=== PATIENT | male | born 1980 | race Caucasian/White ===

== ENCOUNTER 2018-03-24 05:14 | Emergency (ER) | payer SELFPAY ==
[~2018-03-24] VITALS: Ht 175.3 cm; Wt 81.6 kg
[~2018-03-24 05:14] MED LIST: ACHD5005 PO; HYDR-3812 PO; HYDR1TAB66 PO; IBP800T PO; ONDA4TAB8 SL; SULF1TAB38 PO
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
[2018-03-24] MEDS ORDERED: KETOROLAC 30 MG/ML VIAL IVP STA (05:26)
[2018-03-24] MEDS ORDERED: LACTATED RINGERS 1,000 ML IV ONE ×2 (05:26→06:18)
[2018-03-24] MEDS ORDERED: ONDANSETRON 4 MG/2 ML (SDV) Z0FRAN IVP ONE ×2 (05:30→05:45)
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
[2018-03-24 05:42] LABS: BASOPHILS # (AUTO) 0.1 10^3/uL (0.0-0.1); BASOPHILS % (AUTO) 1 % (0-10); EOSINOPHILS # (AUTO) 1.1 10^3/uL (0.0-0.3); EOSINOPHILS % (AUTO) 11 % (0-10); HEMATOCRIT 45 % (40-54); HEMOGLOBIN 16.8 G/DL (13.3-17.7); LYMPHOCYTES # (AUTO) 4.5 X 10^3 (1.0-4.0); LYMPHOCYTES % (AUTO) 45 % (12-44); MEAN CORPUSCULAR HEMOGLOBIN 31 PG (25-34); MEAN CORPUSCULAR HGB CONC 38 G/DL (32-36); MEAN CORPUSCULAR VOLUME 84 FL (80-99); MEAN PLATELET VOLUME 9.6 FL (7.4-10.4); MONOCYTES # (AUTO) 1.2 X 10^3 (0.0-1.0); MONOCYTES % (AUTO) 12 % (0-12); NEUTROPHILS # (AUTO) 3.1 X 10^3 (1.8-7.8); NEUTROPHILS % (AUTO) 32 % (42-75); PLATELET COUNT 361 10^3/uL (130-400); RED BLOOD COUNT 5.35 10^6/uL (4.35-5.85); RED CELL DISTRIBUTION WIDTH 12.6 % (10.0-14.5); WHITE BLOOD COUNT 9.9 10^3/uL (4.3-11.0)
[2018-03-24] MEDS ORDERED: diphenhydrAMINE 50 MG/ML INJ (BENADRYL) IVP ONE (05:45)
[2018-03-24] MEDS ORDERED: ALFUZOSIN HCL 10 MG TAB (UROXATRAL) PO SCH (05:45)
[2018-03-24] MEDS ORDERED: ORPHENADRINE 60 MG/2 ML (NORFLEX) AMP IV ONE (05:45)
[2018-03-24] MEDS ORDERED: PANTOPRAZOLE 40 MG (PROTONIX) VIAL IV ONE (05:45)
[2018-03-24 06:09] LABS: ALANINE AMINOTRANSFERASE 55 U/L (0-55); ALBUMIN 4.7 GM/DL (3.2-4.5); ALKALINE PHOSPHATASE 94 U/L (40-136); AMYLASE 44 U/L (25-125); BILIRUBIN,TOTAL 0.9 MG/DL (0.1-1.0); BUN/CREATININE RATIO 12; CALCIUM 10.3 MG/DL (8.5-10.1); CARBON DIOXIDE 22 MMOL/L (21-32); CHLORIDE 104 MMOL/L (98-107); CREATININE SERUM 1.34 MG/DL (0.60-1.30); GFR ESTIMATED 60; GLUCOSE 104 MG/DL (70-105); LIPASE 23 U/L (8-78); POTASSIUM 3.8 MMOL/L (3.6-5.0); SODIUM 141 MMOL/L (135-145); TOTAL PROTEIN 7.3 GM/DL (6.4-8.2)
[2018-03-24 06:58] LABS: BILIRUBIN,URINE NEGATIVE (NEGATIVE); CLARITY,URINE CLEAR; COLOR,URINE AMBER; GLUCOSE, URINE (UA) NEGATIVE (NEGATIVE); KETONES,URINE 1+ (NEGATIVE); LEUKOCYTE ESTERASE ,URINE 1+ (NEGATIVE); NITRITE,URINE NEGATIVE (NEGATIVE); PH,URINE 6 (5-9); PROTEIN,URINE 1+ (NEGATIVE); UROBILINOGEN,URINE NORMAL (NORMAL)
[2018-03-24] MEDS ORDERED: CIPR-225 PO (07:07)
[2018-03-24] MEDS ORDERED: ONDA4TAB8 PO (07:07)
[2018-03-24] MEDS ORDERED: KETO10TA PO (07:07)
[2018-03-24] MEDS ORDERED: ACHD5005 PO (07:07)
[2018-03-24] MEDS ORDERED: TAMS0.4C98 PO (07:07)
[2018-03-24 07:13] LABS: AMPHETAMINE SCREEN, URINE POSITIVE (NEGATIVE); BACTERIA,URINE NEGATIVE /HPF; BARBITURATE SCREEN URINE NEGATIVE (NEGATIVE); BENZODIAZEPINES SCREEN URINE NEGATIVE (NEGATIVE); CANNABINOID SCREEN, URINE POSITIVE (NEGATIVE); COCAINE SCREEN URINE NEGATIVE (NEGATIVE); METHADONE STAT NEGATIVE (NEGATIVE); METHAMPHETAMINE SCREEN URINE S POSITIVE (NEGATIVE); OPIATE SCREEN URINE NEGATIVE (NEGATIVE); OXYCODONE STAT NEGATIVE (NEGATIVE); PROPOXYPHENE STAT NEGATIVE (NEGATIVE); RBC,URINE 25-50 /HPF; SQUAMOUS EPITHELIAL CELL,UR RARE /HPF; TRICYCLIC ANTIDEPRESSANTS SCRE NEGATIVE (NEGATIVE); WBC,URINE RARE /HPF
[2018-03-24 07:15] VITALS: BP 110/78
--- NOTE | 2018-03-24 07:52 | Diagnostic Imaging Report ---
PROCEDURE: CT urinary tract, rule out kidney stone. TECHNIQUE: Multiple contiguous axial images were obtained through the abdomen and pelvis without the use of intravenous contrast. INDICATION: Right flank pain Comparison is made to the study of 03/02/2018. Note is made of nonacute fracture involving the lateral aspect of right rib in the midthorax. Unenhanced images of the liver and spleen reveal no focal abnormality. There is no evidence of pancreatic, gallbladder or adrenal gland abnormality. Multiple bilateral renal calculi are again identified. There has been migration of a stone into the right mid ureter which measures 0.3 cm in diameter. No free fluid is seen within the abdomen or pelvis. There is no evidence of localized inflammation or focal fluid collection. Appendix has a normal appearance. There is no evidence of abnormality in the non-opacified urinary bladder. IMPRESSION: Bilateral nephrolithiasis with probable at least partially obstructing 0.3 cm calculus in the midportion of the right ureter. Dictated by: Dictated on workstation # [id number]
--- NOTE | 2018-03-24 08:06 | Diagnostic Imaging Report ---
Indication: Right flank pain Supine and upright views of the abdomen are obtained with single view of the chest. Lungs appear clear, bilaterally. Overall bowel gas pattern is within normal limits. Stool overlying the urinary tract does limit evaluation. There appears to be faint calcification projecting over the kidneys bilaterally likely due to nephrolithiasis. No other pathologic calcification is seen within the abdomen or pelvis. Impression: Small bilateral renal calculi without other evidence of acute abnormality seen in the abdomen. Dictated by: Dictated on workstation # [id number]
== END 2018-03-24 07:15 | disposition home or self-care (01) ==
LOC: EDUNIT# 05:14 → ER 05:16
DX: N20.2 Calculus of kidney with calculus of ureter (principal); I10 Essential (primary) hypertension; F15.10 Other stimulant abuse, uncomplicated; F12.10 Cannabis abuse, uncomplicated; Z87.19 Personal history of other diseases of the digestive system; Z86.14 Personal history of Methicillin resistant Staphylococcus aureus infection; Z91.14 Patient's other noncompliance with medication regimen; Z87.891 Personal history of nicotine dependence; Z87.442 Personal history of urinary calculi; Z90.89 Acquired absence of other organs
CPT/HCPCS: 36415; 74022; 74176; 80053; 80306; 80320; 81000; 82150; 83690; 85025; 96361; 96374; 96375

== ENCOUNTER 2019-08-11 06:38 | Emergency (ER) | payer SELFPAY ==
[~2019-08-11] VITALS: Ht 180 cm; Wt 84.0 kg
[~2019-08-11 06:38] MED LIST changes: +CIPR-225 PO; +KETO10TA PO; +ONDA4TAB8 PO; +TMSL.4C PO
[2019-08-11] MEDS ORDERED: KETOROLAC 30 MG/ML VIAL ONE (06:43)
[2019-08-11] MEDS ORDERED: KETOROLAC 30 MG/ML VIAL IVP STA (06:53)
[2019-08-11] MEDS ORDERED: fentaNYL INJECTION 100 MCG/2 ML AMP IVP STA (06:53)
[2019-08-11] MEDS ORDERED: LACTATED RINGERS 1,000 ML IV STA (06:53)
--- NOTE | 2019-08-11 06:55 | NUR ---
IN ROOM AT THIS TIME.
[2019-08-11] MEDS ORDERED: fentaNYL INJECTION 100 MCG/2 ML AMP IVP PRN (07:45)
[2019-08-11 08:02] LABS: BASOPHILS % (AUTO) 0 % (0-10); EOSINOPHILS # (AUTO) 0.5 10^3/uL (0.0-0.3); EOSINOPHILS % (AUTO) 7 % (0-10); HEMATOCRIT 41 % (40-54); LYMPHOCYTES # (AUTO) 2.2 X 10^3 (1.0-4.0); LYMPHOCYTES % (AUTO) 32 % (12-44); MEAN CORPUSCULAR HEMOGLOBIN 31 PG (25-34); MEAN CORPUSCULAR HGB CONC 36 G/DL (32-36); MEAN CORPUSCULAR VOLUME 85 FL (80-99); MEAN PLATELET VOLUME 9.3 FL (7.4-10.4); MONOCYTES # (AUTO) 0.4 X 10^3 (0.0-1.0); MONOCYTES % (AUTO) 6 % (0-12); NEUTROPHILS # (AUTO) 3.9 X 10^3 (1.8-7.8); NEUTROPHILS % (AUTO) 55 % (42-75); PLATELET COUNT 284 10^3/uL (130-400); WHITE BLOOD COUNT 7.1 10^3/uL (4.3-11.0)
[2019-08-11 08:22] LABS: ALANINE AMINOTRANSFERASE 41 U/L (0-55); ALBUMIN 3.8 GM/DL (3.2-4.5); ALKALINE PHOSPHATASE 90 U/L (40-136); BILIRUBIN,TOTAL 0.5 MG/DL (0.1-1.0); BUN/CREATININE RATIO 13; CALCIUM 9.1 MG/DL (8.5-10.1); CARBON DIOXIDE 27 MMOL/L (21-32); CHLORIDE 105 MMOL/L (98-107); CREATININE SERUM 1.23 MG/DL (0.60-1.30); GFR ESTIMATED > 60; GLUCOSE 113 MG/DL (70-105); POTASSIUM 3.7 MMOL/L (3.6-5.0); SODIUM 138 MMOL/L (135-145); TOTAL PROTEIN 6.4 GM/DL (6.4-8.2)
--- NOTE | 2019-08-11 08:44 | Diagnostic Imaging Report ---
EXAMINATION: CT Abdomen Pelvis without contrast. TECHNIQUE: Multiple contiguous axial images were obtained through the abdomen and pelvis without the use of intravenous contrast. All CT scans use one or more of the following dose optimizing techniques: automated exposure control, MA and/or KvP adjustment based on a patient size and exam type, or iterative reconstruction. HISTORY: Flank pain COMPARISON: 03/24/2018 FINDINGS: Limited views of the lower thorax are unremarkable. The liver is normal without focal lesion. There is no biliary ductal dilation. Gallbladder is normal. Pancreas is normal. Spleen is normal. Adrenal glands are normal. There are approximately eight right and six left renal stones. The largest on the right measures 7 mm and the largest on the left measures 5 mm. There is mild left hydroureteronephrosis with a 2 mm stone in the distal left ureter approximately 1 cm proximal to the left ureterovesical junction. There is mild left perinephric fat stranding. No right-sided ureteral stones are seen. Urinary bladder is normal. There are no dilated loops of large or small bowel. No obstruction or inflammation. No free fluid or air. No abdominal or pelvic lymphadenopathy. Aorta is normal in caliber without aneurysm. There are no suspicious osseus lesions. Old right-sided rib fractures are seen. IMPRESSION: 1. Obstructing 2 mm stone in the distal left ureter with mild left hydroureteronephrosis. Dictated by: Dictated on workstation # [id number]
[2019-08-11] MEDS ORDERED: HYDROmorphone 2 MG/ML VIAL (DILAUDID) IV ONE (08:45)
[2019-08-11 09:29] LABS: BILIRUBIN,URINE NEGATIVE (NEGATIVE); CLARITY,URINE CLEAR; COLOR,URINE YELLOW; GLUCOSE, URINE (UA) NEGATIVE (NEGATIVE); KETONES,URINE NEGATIVE (NEGATIVE); LEUKOCYTE ESTERASE ,URINE NEGATIVE (NEGATIVE); NITRITE,URINE NEGATIVE (NEGATIVE); PH,URINE 7.5 (5-9); PROTEIN,URINE NEGATIVE (NEGATIVE)
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
[2019-08-11 09:42] LABS: BACTERIA,URINE TRACE /HPF; RBC,URINE 50-100 /HPF
[2019-08-11 09:48] LABS: AMPHETAMINE SCREEN, URINE POSITIVE (NEGATIVE); BARBITURATE SCREEN URINE NEGATIVE (NEGATIVE); BENZODIAZEPINES SCREEN URINE NEGATIVE (NEGATIVE); CANNABINOID SCREEN, URINE POSITIVE (NEGATIVE); COCAINE SCREEN URINE NEGATIVE (NEGATIVE); METHADONE STAT NEGATIVE (NEGATIVE); METHAMPHETAMINE SCREEN URINE S POSITIVE (NEGATIVE); OPIATE SCREEN URINE NEGATIVE (NEGATIVE); OXYCODONE STAT NEGATIVE (NEGATIVE); PROPOXYPHENE STAT NEGATIVE (NEGATIVE); TRICYCLIC ANTIDEPRESSANTS SCRE NEGATIVE (NEGATIVE)
[2019-08-11] MEDS ORDERED: ACHD5005 PO (09:49)
[2019-08-11] MEDS ORDERED: CEPH500T PO (09:49)
[2019-08-11] MEDS ORDERED: HYDROcodone/APAP 5 MG/325 MG (LORTAB) TAB PO ONE (10:00)
--- NOTE | 2019-08-11 10:01 | Diagnostic Imaging Report ---
EXAMINATION: Supine abdomen at 938h. INDICATION: Right-sided pain The CT abdomen/pelvis exam performed earlier today at 7:00 AM noted a 2 mm obstructive calculus within the distal LEFT ureter. There may be a small calcific density in this region on this exam. The nonobstructive calculi within both kidneys seen previously are again evident. No other pathological calcification is seen. IMPRESSION: The obstructive calculus involving the distal left ureter seen previously does appear to be evident on this exam. The nonobstructive calculi within the kidneys are also again seen. Dictated by: Dictated on workstation # [id number]
[2019-08-11 10:14] VITALS: BP 128/96
== END 2019-08-11 10:14 | disposition home or self-care (01) ==
LOC: EDUNIT# 06:38 → ER 06:40
DX: N13.2 Hydronephrosis with renal and ureteral calculous obstruction (principal); I10 Essential (primary) hypertension; F17.210 Nicotine dependence, cigarettes, uncomplicated
CPT/HCPCS: 36415; 74018; 74176; 80053; 80306; 81000; 85025; 96374; 96375; 96376

== ENCOUNTER 2020-08-28 09:54 | Emergency (ER) | payer SELFPAY ==
[~2020-08-28] VITALS: Ht 175.2 cm; Wt 86.2 kg
[~2020-08-28 09:54] MED LIST changes: +CEPH500T PO; -HYDR-3812 PO
[2020-08-28] MEDS ORDERED: morphine INJ 10 MG/ML 1ML (SYR OR VIAL) IVP STA ×2 (10:00→10:45)
--- NOTE | 2020-08-28 10:31 | Diagnostic Imaging Report ---
EXAMINATION: Left hand at 10:16 AM. INDICATION: Left 2nd digit saw injury. TECHNIQUE/COMPARISON: Three views were obtained. There are no prior studies available for comparison. FINDINGS: There is evidence of a considerable soft tissue injury along the lateral and volar aspect of the 2nd metacarpophalangeal joint. There is no evidence for a fracture in this region. There is no clear sign of a radiopaque foreign body although this area is partially obscured by overlying gauze. No other fracture or acute bony abnormality is noted. There are post surgical changes involving the middle phalanx of the 3rd digit. Specifically, there is an orthopedic plate and screw fixation device along the dorsal aspect of the middle phalanx. IMPRESSION: 1. There is a soft tissue injury along the lateral volar aspect of the 2nd metacarpophalangeal region. There is no fracture identified nor is there any clear evidence for a radiopaque foreign body. 2. There is no acute bony abnormality noted otherwise. 3. There are post surgical changes involving the middle phalanx of the 3rd digit. Dictated by: Dictated on workstation # [id number]
[2020-08-28] MEDS ORDERED: LIDOCAINE 1% INJ 20 ML 20 ML VIAL ONE (10:32)
[2020-08-28 10:33] LABS: HEMOGLOBIN 15.7 g/dL (13.3-17.7); WHITE BLOOD COUNT 8.3 10^3/uL (4.3-11.0)
[2020-08-28] MEDS ORDERED: TETANUS,DIPTH,PERTUSS P/F (BOOSTRIX) 0.5 ML VIAL IM ONE ×2 (10:43→11:00)
[2020-08-28] MEDS ORDERED: LIDOCAINE 1% INJ 20 ML 20 ML VIAL INJ ONE ×2 (10:45)
[2020-08-28] MEDS ORDERED: LORazepam INJ 2 MG/ML (ATIVAN) VIAL IVP ONE (10:45)
[2020-08-28 10:47] LABS: CHLORIDE 105 MMOL/L (98-107); POTASSIUM 4.1 MMOL/L (3.6-5.0); SODIUM 139 MMOL/L (135-145)
[2020-08-28 10:49] LABS: CALCIUM 9.1 MG/DL (8.5-10.1); GLUCOSE 76 MG/DL (70-105)
[2020-08-28 10:51] LABS: CARBON DIOXIDE 25 MMOL/L (21-32)
[2020-08-28 10:53] LABS: CREATININE SERUM 1.22 MG/DL (0.60-1.30); GFR ESTIMATED > 60
[2020-08-28 10:54] LABS: BUN/CREATININE RATIO 14
[2020-08-28] MEDS ORDERED: TRANEXAMIC ACID 100 MG/ML 10 ML INJECTION ONE (11:15)
[2020-08-28] MEDS ORDERED: NS (IVPB) 50 ML ONE (11:18)
[2020-08-28] MEDS ORDERED: TRANEXAMIC ACID INJECTION 1,000 MG in NS (IVPB) 250 ML IV SCH (12:00)
[2020-08-28] MEDS ORDERED: TRANEXAMIC ACID INJECTION 1,000 MG in NS (IVPB) 100 ML IV ONE (12:15)
[2020-08-28] MEDS ORDERED: ceFAZolin 2 GM IV Premixed 50 ML IV ONE (12:45)
[2020-08-28] MEDS ORDERED: TRIM/SULFAMETH 160/800 (SEPTRA DS) TAB PO ONE (12:45)
--- NOTE | 2020-08-28 13:43 | CONSULTATION REPORT ---
DATE OF SERVICE: 08/28/2020 HISTORY OF PRESENT ILLNESS: The patient is a 40-year-old male who was brought into the Emergency Department after sustaining a laceration to the left second digit while using a circular saw. He reports that he was working with wood and his hand slipped and sustained a laceration encompassing around the area of the second metacarpophalangeal joint extending superiorly over the proximal portion of the digit and then returning back medially causing a flap. The ED physician was able to suture the vast majority of the wound; however, there was continued hemorrhagic oozing. Few full thickness sutures were placed to tamponade at the bleeders with visualization of good hemostasis. He does have full extension and flexion capabilities of the digit and does not appear to have any paresthesias. PAST MEDICAL HISTORY: Polysubstance abuse, nephrolithiasis, hypertension. PAST SURGICAL HISTORY: Tonsillectomy, adenoidectomy. SOCIAL HISTORY: Positive smoke 30 pack years. Positive alcohol. Positive for polysubstance illicit drug use. FAMILY HISTORY: Noncontributory. VITAL SIGNS: Temperature 36.4, blood pressure 140/86, pulse 118, respirations 20, pulse ox 100% on room air. REVIEW OF SYSTEMS: A well-nourished male currently in no acute distress. He is not experiencing any shortness of breath or difficulty breathing. No chest pain, palpitations, diaphoresis. No nausea, vomiting. No diarrhea or constipation. No fever, chills, no recent inadvertent weight loss. All other review of systems negative. PHYSICAL EXAMINATION: CHEST: Clear. Good breath sounds bilaterally. HEART: Regular, no murmurs. EXTREMITIES: No lower extremity edema, negative Homans sign. HEENT: No scleral icterus. NECK: No cervical lymphadenopathy. ABDOMEN: Soft, nontender, nondistended. SKIN: There is a full thickness skin laceration of the left second metacarpophalangeal region. However, there does not appear to be any physical dysfunction or focal neurologic deficit. This has been sutured. However, there continues to be some oozing in some regions. EXTREMITIES: He moves all digits purposefully upon command. LABORATORY DATA: WBC 8.3, hemoglobin 15.7, hematocrit 45, platelets 293. BUN 17, creatinine 1.22. ASSESSMENT AND PLAN: A 40-year-old male with trauma to the right first digit and metacarpophalangeal joint with a full thickness skin tear; however, he does not appear to have any motor or sensory deficit and this has been repaired by Emergency Department physician. However, there appears to be some residual oozing, which were tamponaded with interrupted 4-0 Prolene sutures. This was observed for several minutes with good hemostasis. The wound was then cleaned and covered with 4 x 4 gauze followed by Lexi wrap and then 2-inch Hakeem wrap followed by a removable splint. Staff is working on a followup appointment with orthopedic hand surgery for followup as well. Job ID: [id number] DocumentID: [id number] Dictated Date: 08/28/2020 13:18:35 [employer] Date: 08/28/2020 13:41:56 Dictated By: SONDRA CASTANO MD
[2020-08-28] MEDS ORDERED: SULF1TAB35 PO (14:28)
[2020-08-28] MEDS ORDERED: ACHD5005 PO (14:28)
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
[2020-08-28 14:39] VITALS: BP 106/69
== END 2020-08-28 14:39 | disposition home or self-care (01) ==
LOC: EDUNIT# 09:54 → ER 09:56
DX: S61.211A Laceration without foreign body of left index finger without damage to nail, initial encounter (principal); S66.321A Laceration of extensor muscle, fascia and tendon of left index finger at wrist and hand level, initial encounter; R58 Hemorrhage, not elsewhere classified; Z87.820 Personal history of traumatic brain injury; Z23 Encounter for immunization; Z77.22 Contact with and (suspected) exposure to environmental tobacco smoke (acute) (chronic); W31.2XXA Contact with powered woodworking and forming machines, initial encounter
CPT/HCPCS: 12034; 29125; 73130; 80048; 85027; 99284; G0480; 36415; 80320; 90715

== ENCOUNTER 2020-08-30 10:06 | Emergency (ER) | payer SELFPAY ==
[~2020-08-30] VITALS: Ht 175.2 cm; Wt 86.2 kg
[~2020-08-30 10:06] MED LIST changes: +SULF1TAB35 PO
[2020-08-30 10:13] VITALS: BP 137/95
[2020-08-30] MEDS ORDERED: TRM50T PO (11:22)
--- NOTE | 2020-08-30 11:24 | ED Suture Removal/Wound Check ---
Suture/Wound Re-check Suture Removal/Wound Recheck : Suture Removal/Wound Recheck: Dry/sterile dressing-appl General Appearance: WD/WN, no apparent distress Neuro/Tendon: normal sensation, motor deficit Skin Exam: normal color (Decreased range of motion secondary to pain), warm/dry Comments Patient presents to the emergency department for reevaluation of left index finger laceration by a saw 2 days ago. Patient has intact suture line from 2 days ago over the dorsum of the index finger of the left hand. He has dried crusted scabs over the entirety of the suture line. Patient states he has not washed his hands since he was seen and had the laceration repaired. Patient has hematoma that is soft underneath the flap. No surrounding erythema, no proximal lymphangitic streaking sensation is intact to the tip of the left index finger. He has some flexion at the proximal interphalangeal joint and at the MCP joint. Patient is given a phone number for follow-up with [facility]. He is strongly encouraged to call them for a follow-up appointment as he cannot afford to go to [facility] in [facility]. Physical Exam Vital Signs Vital Signs - First Documented 08/30/20 10:13 Temp 35.5 Pulse 93 Resp 18 B/P (MAP) 137/95 Pulse Ox 100 O2 Delivery Room Air Capillary Refill : General Appearance: WD/WN, mild distress Cardiovascular: regular rate, rhythm Respiratory: no respiratory distress Skin: normal color, warm/dry, other (See HPI) Departure Impression Primary Impression: Wound hematoma Additional Impression: Wound healing well Disposition: 01 HOME, SELF-CARE Condition: Stable Departure-Patient Inst. Decision time for Depature: 11:21 Referrals: NO,LOCAL PHYSICIAN (PCP) Primary Care Physician [facility] [place] Patient Instructions: Wound Care (DC) Add. Discharge Instructions: All discharge instructions reviewed with patient and/or family. Voiced understanding. Scripts Tramadol HCl (Tramadol HCl) 50 Mg Tablet 50 MG PO Q6H PRN for PAIN for 3 Days, #12 TAB 0 Refills Prov: WILFRED TOPETE MD 08/30/20 WILFRED TOPETE MD Aug 30, 2020 11:24
== END 2020-08-30 11:26 | disposition home or self-care (01) ==
LOC: EDUNIT# 10:06 → ER 10:09
DX: S61.211D Laceration without foreign body of left index finger without damage to nail, subsequent encounter (principal); X58.XXXD Exposure to other specified factors, subsequent encounter

== ENCOUNTER 2020-10-22 11:55 | Emergency (ER) | payer SELFPAY ==
[~2020-10-22] VITALS: Ht 175 cm; Wt 84.0 kg
[~2020-10-22 11:55] MED LIST changes: +TRM50T PO
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
[2020-10-22] MEDS ORDERED: KETOROLAC 30 MG/ML VIAL IVP ONE (12:15)
[2020-10-22] MEDS ORDERED: NS IV 1000 ML 1,000 ML IV SCH (12:15)
[2020-10-22] MEDS ORDERED: fentaNYL INJ 100 MCG/2 ML AMP IVP ONE ×2 (12:15→13:30)
[2020-10-22 12:29] LABS: BASOPHILS % (AUTO) 0 % (0-10); EOSINOPHILS # (AUTO) 0.3 10^3/uL (0.0-0.3); EOSINOPHILS % (AUTO) 3 % (0-10); HEMATOCRIT 43 % (40-54); HEMOGLOBIN 15.3 g/dL (13.3-17.7); LYMPHOCYTES # (AUTO) 2.7 10^3/uL (1.0-4.0); LYMPHOCYTES % (AUTO) 29 % (12-44); MEAN CORPUSCULAR HEMOGLOBIN 31 pg (25-34); MEAN CORPUSCULAR HGB CONC 36 g/dL (32-36); MEAN CORPUSCULAR VOLUME 86 fL (80-99); MEAN PLATELET VOLUME 9.3 fL (9.0-12.2); MONOCYTES # (AUTO) 0.7 10^3/uL (0.0-1.0); MONOCYTES % (AUTO) 8 % (0-12); NEUTROPHILS # (AUTO) 5.4 10^3/uL (1.8-7.8); NEUTROPHILS % (AUTO) 59 % (42-75); PLATELET COUNT 288 10^3/uL (130-400); WHITE BLOOD COUNT 9.2 10^3/uL (4.3-11.0)
[2020-10-22 12:29] LABS: BILIRUBIN,URINE NEGATIVE (NEGATIVE); CLARITY,URINE CLEAR; COLOR,URINE YELLOW; GLUCOSE, URINE (UA) NEGATIVE (NEGATIVE); KETONES,URINE NEGATIVE (NEGATIVE); LEUKOCYTE ESTERASE ,URINE NEGATIVE (NEGATIVE); NITRITE,URINE NEGATIVE (NEGATIVE); PROTEIN,URINE NEGATIVE (NEGATIVE)
[2020-10-22 12:43] LABS: AMPHETAMINE SCREEN, URINE POSITIVE (NEGATIVE); BARBITURATE SCREEN URINE NEGATIVE (NEGATIVE); BENZODIAZEPINES SCREEN URINE NEGATIVE (NEGATIVE); CANNABINOID SCREEN, URINE POSITIVE (NEGATIVE); COCAINE SCREEN URINE NEGATIVE (NEGATIVE); METHADONE STAT NEGATIVE (NEGATIVE); METHAMPHETAMINE SCREEN URINE S POSITIVE (NEGATIVE); OPIATE SCREEN URINE NEGATIVE (NEGATIVE); OXYCODONE STAT NEGATIVE (NEGATIVE); PROPOXYPHENE STAT NEGATIVE (NEGATIVE); TRICYCLIC ANTIDEPRESSANTS SCRE NEGATIVE (NEGATIVE)
[2020-10-22 12:44] LABS: ALBUMIN 4.1 GM/DL (3.2-4.5); POTASSIUM 3.9 MMOL/L (3.6-5.0)
[2020-10-22 12:45] LABS: CALCIUM 9.4 MG/DL (8.5-10.1)
[2020-10-22 12:47] LABS: TOTAL PROTEIN 6.9 GM/DL (6.4-8.2)
[2020-10-22 12:48] LABS: BILIRUBIN,TOTAL 0.7 MG/DL (0.1-1.0)
[2020-10-22 12:50] LABS: CREATININE SERUM 1.35 MG/DL (0.60-1.30)
[2020-10-22 12:57] LABS: BACTERIA,URINE NEGATIVE /HPF; RBC,URINE 25-50 /HPF; WBC,URINE 0-2 /HPF
[2020-10-22] MEDS ORDERED: NS 100 ML (IVPB) BAG IV ONE (13:15)
[2020-10-22] MEDS ORDERED: HOLD METFORMIN - RECEIVED CONTRAST 20 ML VIAL IV SCH (13:15)
[2020-10-22] MEDS ORDERED: IOHEXOL 350 MG/ML 100 ML (OMNIPAQUE 350) VIAL IV ONE (13:15)
[2020-10-22] MEDS ORDERED: CATHETER FLUSH 10 ML SYR IV PRN (13:15)
[2020-10-22] MEDS ORDERED: TMSL.4C PO (13:24)
[2020-10-22] MEDS ORDERED: OXYC1TAB16 PO (13:24)
[2020-10-22] MEDS ORDERED: CEFU500T63 PO (13:24)
[2020-10-22] MEDS ORDERED: IBUP-1780 PO (13:24)
[2020-10-22] MEDS ORDERED: HYDROcodone/APAP 5 MG/325 MG (LORTAB) TAB PO ONE (13:30)
--- NOTE | 2020-10-22 13:38 | Diagnostic Imaging Report ---
EXAMINATION: CT Abdomen/Pelvis without contrast. TECHNIQUE: Multiple contiguous axial images were obtained through the abdomen and pelvis without the use of intravenous contrast. All CT scans use one or more of the following dose optimizing techniques: automated exposure control, MA and/or KvP adjustment based on a patient size and exam type, or iterative reconstruction. HISTORY: Left flank pain. COMPARISON: CT abdomen/pelvis 08/11/2019. FINDINGS: Lung bases: Bibasilar dependent atelectasis. Solid organs: The liver is normal. The gallbladder is normal. There is no biliary ductal dilation. Pancreas is normal. Spleen is normal. Adrenal glands are normal. There is a 0.6 cm calculus within the mid left ureter resulting in mild left hydronephrosis and hydroureter. There are additional bilateral nonobstructing renal calculi measuring up to 0.4 cm. Bowel: The stomach and small bowel are normal without obstruction. The colon and appendix are normal. Peritoneum: There is no intraperitoneal free fluid or free air. No suspicious lymphadenopathy. Vasculature: Normal without aneurysm. Musculoskeletal: There is a left-sided L5 pars defect. No suspicious osseous lesion or compression fracture. There is mild bilateral gynecomastia. Pelvis: The prostate gland is normal. The urinary bladder is normal. IMPRESSION: 1. There is a 0.6 cm mid left ureteral calculus causing mild left hydronephrosis and hydroureter. 2. Additional bilateral nonobstructing renal calculi measuring up to 0.4 cm. Dictated by: Dictated on workstation # [id number]
[2020-10-22 14:02] VITALS: BP 133/88
--- NOTE | 2020-10-22 14:27 | Diagnostic Imaging Report ---
EXAMINATION: Abdomen 1 view HISTORY: left flank pain COMPARISON: CT abdomen and pelvis from 10/22/2020. FINDINGS: There is moderate amount of gas and stool throughout the colon. Nonobstructive bowel gas pattern. There is a 0.6 cm radiopaque structure at the level of the superior endplate of L3 which may correspond to the ureteral calculus seen on same-day CT. The osseous structures are intact. IMPRESSION: A 0.6 cm radiopaque structure in the left abdomen likely corresponds to the mid left ureteral calculus seen on same-day CT of the abdomen and pelvis. Dictated by: Dictated on workstation # [id number]
== END 2020-10-22 14:02 | disposition home or self-care (01) ==
LOC: EDUNIT# 11:55 → ER 11:56
DX: N13.2 Hydronephrosis with renal and ureteral calculous obstruction (principal); I10 Essential (primary) hypertension; Z77.22 Contact with and (suspected) exposure to environmental tobacco smoke (acute) (chronic)
CPT/HCPCS: 36415; 74018; 74176; 80053; 80306; 81000; 85025; 96374; 96375; 96376

== ENCOUNTER 2020-10-24 19:53 | Emergency (ER) | payer SELFPAY ==
[~2020-10-24] VITALS: Ht 175 cm; Wt 82.0 kg
[~2020-10-24 19:53] MED LIST changes: +CEFU500T63 PO; +IBUP-1780 PO; +OXYC1TAB16 PO
[2020-10-24] MEDS ORDERED: NS IV 1000 ML 1,000 ML ONE (19:55)
[2020-10-24] MEDS ORDERED: NS IV 1000 ML 1,000 ML IV STA (19:59)
[2020-10-24] MEDS ORDERED: fentaNYL INJ 100 MCG/2 ML AMP IVP ONE ×3 (20:00→21:15)
[2020-10-24] MEDS ORDERED: KETOROLAC 30 MG/ML VIAL IVP ONE (20:00)
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
[2020-10-24 20:06] LABS: BASOPHILS % (AUTO) 0 % (0-10); EOSINOPHILS # (AUTO) 0.3 10^3/uL (0.0-0.3); EOSINOPHILS % (AUTO) 3 % (0-10); HEMATOCRIT 42 % (40-54); HEMOGLOBIN 14.7 g/dL (13.3-17.7); LYMPHOCYTES # (AUTO) 2.2 10^3/uL (1.0-4.0); LYMPHOCYTES % (AUTO) 18 % (12-44); MEAN CORPUSCULAR HEMOGLOBIN 31 pg (25-34); MEAN CORPUSCULAR HGB CONC 35 g/dL (32-36); MEAN CORPUSCULAR VOLUME 88 fL (80-99); MEAN PLATELET VOLUME 9.5 fL (9.0-12.2); MONOCYTES # (AUTO) 0.6 10^3/uL (0.0-1.0); MONOCYTES % (AUTO) 5 % (0-12); NEUTROPHILS # (AUTO) 8.7 10^3/uL (1.8-7.8); NEUTROPHILS % (AUTO) 74 % (42-75); PLATELET COUNT 267 10^3/uL (130-400); WHITE BLOOD COUNT 11.8 10^3/uL (4.3-11.0)
[2020-10-24 20:23] LABS: BUN/CREATININE RATIO 9; CARBON DIOXIDE 24 MMOL/L (21-32); CHLORIDE 105 MMOL/L (98-107); CREATININE SERUM 1.05 MG/DL (0.60-1.30); GFR ESTIMATED > 60; GLUCOSE 125 MG/DL (70-105); POTASSIUM 4.3 MMOL/L (3.6-5.0); SODIUM 139 MMOL/L (135-145)
[2020-10-24 20:36] LABS: BILIRUBIN,URINE NEGATIVE (NEGATIVE); CLARITY,URINE CLEAR; COLOR,URINE YELLOW; GLUCOSE, URINE (UA) NEGATIVE (NEGATIVE); KETONES,URINE NEGATIVE (NEGATIVE); LEUKOCYTE ESTERASE ,URINE NEGATIVE (NEGATIVE); NITRITE,URINE NEGATIVE (NEGATIVE); PROTEIN,URINE NEGATIVE (NEGATIVE)
[2020-10-24 20:42] LABS: BACTERIA,URINE NEGATIVE /HPF; SQUAMOUS EPITHELIAL CELL,UR RARE /HPF
[2020-10-24 20:48] LABS: AMPHETAMINE SCREEN, URINE POSITIVE (NEGATIVE); BARBITURATE SCREEN URINE NEGATIVE (NEGATIVE); BENZODIAZEPINES SCREEN URINE NEGATIVE (NEGATIVE); CANNABINOID SCREEN, URINE POSITIVE (NEGATIVE); COCAINE SCREEN URINE NEGATIVE (NEGATIVE); METHADONE STAT NEGATIVE (NEGATIVE); METHAMPHETAMINE SCREEN URINE S POSITIVE (NEGATIVE); OPIATE SCREEN URINE NEGATIVE (NEGATIVE); OXYCODONE STAT NEGATIVE (NEGATIVE); PROPOXYPHENE STAT NEGATIVE (NEGATIVE); TRICYCLIC ANTIDEPRESSANTS SCRE NEGATIVE (NEGATIVE)
[2020-10-24] MEDS ORDERED: OXYC1TAB16 PO (21:09)
[2020-10-24] MEDS ORDERED: CEFU250T80 PO (21:09)
[2020-10-24] MEDS ORDERED: RX-OXYCODONE/APAP 5-325 MG #4 TAB PK PO PRN (21:15)
[2020-10-24 21:35] VITALS: BP 131/94
--- NOTE | 2020-10-24 21:42 | Diagnostic Imaging Report ---
INDICATION: Left ureteral stone. EXAMINATION: Supine image of the abdomen was obtained. COMPARISON: Study of 10/22/2014. A 0.5 cm calculus is again seen to the left of L3 vertebral body and likely resides within the ureter. Additional small calcifications project over the kidneys, bilaterally, similar to previous study. IMPRESSION: Stable bilateral nephrolithiasis and presumed ureteric stone at the L3 level on the left. Dictated by: Dictated on workstation # [id number]
[2020-10-25] MEDS ORDERED: ONDA8TAB13 PO (02:15)
== END 2020-10-24 21:37 | disposition home or self-care (01) ==
LOC: EDUNIT# 19:53 → ER 19:54
DX: N20.0 Calculus of kidney (principal); I10 Essential (primary) hypertension; Z87.820 Personal history of traumatic brain injury; Z77.22 Contact with and (suspected) exposure to environmental tobacco smoke (acute) (chronic)
CPT/HCPCS: 36415; 74018; 80048; 80306; 81000; 85025

== ENCOUNTER 2020-10-25 01:34 | Emergency (ER) | payer SELFPAY ==
[~2020-10-25] VITALS: Ht 175 cm; Wt 82.0 kg
[~2020-10-25 01:34] MED LIST changes: +CEFU250T80 PO
[2020-10-25 01:42] VITALS: BP 152/100
[2020-10-25] MEDS ORDERED: KETOROLAC 30 MG/ML VIAL IVP STA (01:42)
[2020-10-25] MEDS ORDERED: LACTATED RINGERS 1,000 ML IV ONE (01:45)
[2020-10-25] MEDS ORDERED: ORPHENADRINE 60 MG/2 ML (NORFLEX) AMP (ED ONLY) IM ONE (02:00)
[2020-10-25] MEDS ORDERED: ONDANSETRON 4 MG (ZOFRAN) ORAL DISSOLVE TAB PO ONE (02:00)
[2020-10-25] MEDS ORDERED: KETOROLAC 60 MG/2 ML VIAL IM ONE (02:00)
[2020-10-25] MEDS ORDERED: TAMSULOSIN 0.4 MG (FLOMAX) CAP PO SCH (02:00)
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
[2020-10-25] MEDS ORDERED: ONDA8TAB13 PO (02:15)
== END 2020-10-25 02:25 | disposition home or self-care (01) ==
LOC: EDUNIT# 01:34 → ER 01:37
DX: N20.0 Calculus of kidney (principal); F19.90 Other psychoactive substance use, unspecified, uncomplicated; I10 Essential (primary) hypertension; F17.210 Nicotine dependence, cigarettes, uncomplicated; Z87.820 Personal history of traumatic brain injury
CPT/HCPCS: 99284

== ENCOUNTER 2020-10-26 06:39 | Emergency (ER) | payer SELFPAY ==
[~2020-10-26] VITALS: Ht 175 cm; Wt 83.0 kg
[~2020-10-26 06:39] MED LIST changes: +ONDA8TAB13 PO
[2020-10-26 06:50] VITALS: BP 158/95
[2020-10-26] MEDS ORDERED: ONDANSETRON 4 MG (ZOFRAN) ORAL DISSOLVE TAB PO ONE (07:00)
[2020-10-26] MEDS ORDERED: KETOROLAC 60 MG/2 ML VIAL IM ONE (07:00)
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
[2020-10-26] MEDS ORDERED: NS IV 1000 ML 1,000 ML IV SCH (07:15)
[2020-10-26 07:25] LABS: BASOPHILS % (AUTO) 0 % (0-10); EOSINOPHILS # (AUTO) 0.3 10^3/uL (0.0-0.3); EOSINOPHILS % (AUTO) 3 % (0-10); HEMATOCRIT 41 % (40-54); HEMOGLOBIN 14.3 g/dL (13.3-17.7); LYMPHOCYTES # (AUTO) 1.8 10^3/uL (1.0-4.0); LYMPHOCYTES % (AUTO) 16 % (12-44); MEAN CORPUSCULAR HEMOGLOBIN 31 pg (25-34); MEAN CORPUSCULAR HGB CONC 35 g/dL (32-36); MEAN CORPUSCULAR VOLUME 88 fL (80-99); MEAN PLATELET VOLUME 9.5 fL (9.0-12.2); MONOCYTES # (AUTO) 0.8 10^3/uL (0.0-1.0); MONOCYTES % (AUTO) 8 % (0-12); NEUTROPHILS % (AUTO) 73 % (42-75); PLATELET COUNT 231 10^3/uL (130-400)
[2020-10-26 07:33] LABS: POTASSIUM 4.1 MMOL/L (3.6-5.0)
[2020-10-26 07:34] LABS: CALCIUM 8.6 MG/DL (8.5-10.1)
[2020-10-26 07:38] LABS: CREATININE SERUM 1.72 MG/DL (0.60-1.30)
== END 2020-10-26 07:52 | disposition home or self-care (01) ==
LOC: EDUNIT# 06:39 → ER 06:41
DX: N13.2 Hydronephrosis with renal and ureteral calculous obstruction (principal); I10 Essential (primary) hypertension; Z77.22 Contact with and (suspected) exposure to environmental tobacco smoke (acute) (chronic)
CPT/HCPCS: 36415; 80048; 85025

== ENCOUNTER 2020-10-27 05:16 | Inpatient (IN) | payer SELFPAY ==
[~2020-10-27] VITALS: Ht 175.3 cm; Wt 102.0 kg
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
[2020-10-27] MEDS ORDERED: ONDANSETRON 4 MG/2 ML (SDV) Z0FRAN IVP ONE (06:00)
[2020-10-27] MEDS ORDERED: NS IV 1000 ML 1,000 ML IV SCH (06:00)
[2020-10-27] MEDS ORDERED: morphine INJ 4 MG/ML 1 ML (VIAL/SYRINGE) IVP ONE (06:00)
[2020-10-27] MEDS ORDERED: morphine INJ 10 MG/ML 1ML (SYR OR VIAL) IVP STA (06:03)
[2020-10-27 06:29] LABS: CALCIUM 8.8 MG/DL (8.5-10.1)
[2020-10-27 06:33] LABS: CREATININE SERUM 1.97 MG/DL (0.60-1.30)
--- NOTE | 2020-10-27 06:46 | Diagnostic Imaging Report ---
Supine abdomen at 6:01. Indication: Left flank pain The CT abdomen/pelvis exam of 10/22/2020 noted a 6 mm obstructive calculus in the mid ureter on the left. There are also bilateral nonobstructive calculi. The obstructive calculus appeared to be at the level of the left transverse process of L3. On the subsequent abdomen exam of 10/24/2020, the calculus is again evident overlying the left transverse process of L3. The nonobstructive calculi within the kidney seen previously are partially visualized. Both kidneys are obscured by bowel gas and fecal material. Impression: The obstructive calculus in the mid ureter on the left seen previously is again evident and does not appear to have changed significantly in position. Dictated by: Dictated on workstation # [id number]
[2020-10-27 07:08] LABS: BILIRUBIN,URINE NEGATIVE (NEGATIVE); CLARITY,URINE CLEAR; COLOR,URINE YELLOW; GLUCOSE, URINE (UA) NEGATIVE (NEGATIVE); KETONES,URINE NEGATIVE (NEGATIVE); LEUKOCYTE ESTERASE ,URINE NEGATIVE (NEGATIVE); NITRITE,URINE POSITIVE (NEGATIVE); PH,URINE 6.5 (5-9); PROTEIN,URINE NEGATIVE (NEGATIVE)
[2020-10-27 07:22] LABS: BACTERIA,URINE NEGATIVE /HPF; WBC,URINE RARE /HPF
[2020-10-27 08:00] VITALS: BP 139/86
[2020-10-27] MEDS ORDERED: ONDANSETRON 4 MG/2 ML (SDV) Z0FRAN IV PRN ×2 (08:15→12:15)
[2020-10-27] MEDS ORDERED: morphine INJ 4 MG/ML 1 ML (VIAL/SYRINGE) IV PRN (08:15)
[2020-10-27] MEDS ORDERED: oxyCODONE/APAP 7.5-325 MG (PERCOCET 7.5) TABLET PO PRN (08:15)
[2020-10-27] MEDS ORDERED: morphine INJ 4 MG/ML 1 ML (VIAL/SYRINGE) IVP PRN (08:15)
[2020-10-27] MEDS ORDERED: CATHETER FLUSH 10 ML SYR IV PRN (08:30)
[2020-10-27] MEDS: CEPHALEXIN 250 MG (KEFLEX) CAP PO SCH ×2 (08:31→19:55)
[2020-10-27] MEDS: LACTATED RINGERS 1,000 ML IV SCH ×4 (08:31→23:20)
[2020-10-27] MEDS ORDERED: GABAPENTIN 100 MG (NEURONTIN) CAP PO NR (10:45)
[2020-10-27] MEDS ORDERED: ACETAMINOPHEN 500 MG TAB (TYLENOL) PO PRN (10:45)
[2020-10-27] MEDS: HYDROmorphone 2 MG/ML VIAL (DILAUDID) IV PRN ×3 (11:10→19:15)
[2020-10-27 12:00] VITALS: BP 131/83
[2020-10-27] MEDS ORDERED: ANTACID SUSP 30 ML UDC (MYLANTA) PO PRN (12:15)
[2020-10-27] MEDS ORDERED: MELATONIN 3 MG TABLET PO PRN (12:15)
[2020-10-27] MEDS ORDERED: ONDANSETRON 4 MG (ZOFRAN) ORAL DISSOLVE TAB PO PRN (12:15)
[2020-10-27] MEDS ORDERED: polyethylene glycoL POWDER 17 GM (MIRALAX) PACK PO PRN (12:15)
[2020-10-27] MEDS ORDERED: MILK OF MAGNESIA 400 MG/5 ML 30 ML UDC PO PRN (12:15)
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
[2020-10-27 15:30] VITALS: BP 169/98
[2020-10-27] MEDS: GABAPENTIN 100 MG (NEURONTIN) CAP PO SCH (19:56)
[2020-10-27 20:00] VITALS: BP 144/88
[2020-10-27] MEDS: diphenhydrAMINE 25 MG TAB (BENADRYL) PO PRN (20:00)
[2020-10-27] MEDS: oxyCODONE/APAP 7.5-325 MG (PERCOCET 7.5) TABLET PO PRN (20:01)
[2020-10-27] MEDS ORDERED: TAMSULOSIN 0.4 MG (FLOMAX) CAP PO SCH (21:00)
[2020-10-27 23:21] VITALS: BP 139/86
[2020-10-28] MEDS: HYDROmorphone 2 MG/ML VIAL (DILAUDID) IV PRN ×3 (01:07→08:44)
[2020-10-28] MEDS: diphenhydrAMINE 25 MG TAB (BENADRYL) PO PRN (03:10)
[2020-10-28] MEDS: oxyCODONE/APAP 7.5-325 MG (PERCOCET 7.5) TABLET PO PRN ×2 (03:11→11:24)
[2020-10-28 03:35] VITALS: BP 146/81
[2020-10-28] MEDS: LACTATED RINGERS 1,000 ML IV SCH (05:08)
[2020-10-28 06:24] LABS: BASOPHILS % (AUTO) 0 % (0-10); EOSINOPHILS # (AUTO) 0.2 10^3/uL (0.0-0.3); EOSINOPHILS % (AUTO) 1 % (0-10); HEMATOCRIT 39 % (40-54); HEMOGLOBIN 13.8 g/dL (13.3-17.7); LYMPHOCYTES # (AUTO) 1.5 10^3/uL (1.0-4.0); LYMPHOCYTES % (AUTO) 13 % (12-44); MEAN CORPUSCULAR HEMOGLOBIN 31 pg (25-34); MEAN CORPUSCULAR HGB CONC 35 g/dL (32-36); MEAN CORPUSCULAR VOLUME 87 fL (80-99); MONOCYTES % (AUTO) 8 % (0-12); NEUTROPHILS # (AUTO) 8.7 10^3/uL (1.8-7.8); NEUTROPHILS % (AUTO) 77 % (42-75); PLATELET COUNT 246 10^3/uL (130-400); WHITE BLOOD COUNT 11.4 10^3/uL (4.3-11.0)
[2020-10-28 06:41] LABS: CALCIUM 8.8 MG/DL (8.5-10.1)
[2020-10-28 06:45] LABS: CREATININE SERUM 1.45 MG/DL (0.60-1.30)
[2020-10-28 08:00] VITALS: BP 146/87
[2020-10-28] MEDS: GABAPENTIN 100 MG (NEURONTIN) CAP PO SCH (08:39)
[2020-10-28] MEDS: CEPHALEXIN 250 MG (KEFLEX) CAP PO SCH (08:40)
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
[2020-10-28 11:40] VITALS: BP 153/96
--- NOTE | 2020-10-28 14:22 | Diagnostic Imaging Report ---
INDICATION: Left-sided kidney stone. COMPARISON: 10/27/2020. FINDINGS: There remains a mineralized focus to the left of the L3 vertebral body in stable position that should represent the mid left ureteral stone. No new mineralized foci are seen along the expected course of the ureters by radiography. Rykgo-[id number]-[id number] volume of stool is present in the right hemicolon. Nonobstructive bowel gas pattern. IMPRESSION: No change in position of the mid left ureteral stone. Dictated by: Dictated on workstation # [id number]
[2020-10-28 16:00] VITALS: BP 133/69
[2020-10-28 17:42] VITALS: BP 133/69
== END 2020-10-28 17:42 | disposition short-term general hospital (02) | DRG 694 ==
LOC: EDUNIT# 05:16 → ER 05:17 → 4TH 07:08
PROVIDERS: ADMIT Internal Medicine; ATTEND Internal Medicine
DX: N13.2 Hydronephrosis with renal and ureteral calculous obstruction (principal); N17.9 Acute kidney failure, unspecified; F19.10 Other psychoactive substance abuse, uncomplicated; E66.9 Obesity, unspecified; Z68.33 Body mass index [BMI] 33.0-33.9, adult; F17.210 Nicotine dependence, cigarettes, uncomplicated; I10 Essential (primary) hypertension
CPT/HCPCS: 36415; 74018; 80048; 81000; 85025

== ENCOUNTER 2021-02-04 13:00 | Emergency (ER) | payer SELFPAY ==
[~2021-02-04] VITALS: Ht 175.2 cm; Wt 100.0 kg
[~2021-02-04 13:00] MED LIST changes: -SULF1TAB35 PO
[2021-02-04] MEDS ORDERED: diphenhydrAMINE 50 MG/ML INJ (BENADRYL) IM ONE (13:30)
[2021-02-04] MEDS ORDERED: KETOROLAC 60 MG/2 ML VIAL IM ONE (13:30)
[2021-02-04] MEDS ORDERED: PROCHLORPERAZINE 10 MG/2ML INJ (COMPAZINE) IM ONE (13:30)
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
[2021-02-04 14:36] VITALS: BP 121/81
== END 2021-02-04 14:18 | disposition home or self-care (01) ==
LOC: EDUNIT# 13:00 → ER 13:06
DX: Z20.822 Contact with and (suspected) exposure to COVID-19 (principal); I10 Essential (primary) hypertension; Z87.820 Personal history of traumatic brain injury; Z86.14 Personal history of Methicillin resistant Staphylococcus aureus infection
CPT/HCPCS: 87636; 99281

== ENCOUNTER 2021-06-01 23:54 | Emergency (ER) | payer SELFPAY ==
[~2021-06-01] VITALS: Ht 175 cm; Wt 104.0 kg
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
[2021-06-02] MEDS ORDERED: NS IV 1000 ML 1,000 ML IV SCH (00:30)
[2021-06-02 00:50] LABS: BASOPHILS % (AUTO) 1 % (0-10); EOSINOPHILS # (AUTO) 0.4 10^3/uL (0.0-0.3); EOSINOPHILS % (AUTO) 5 % (0-10); HEMATOCRIT 42 % (40-54); HEMOGLOBIN 14.5 g/dL (13.3-17.7); LYMPHOCYTES # (AUTO) 2.3 10^3/uL (1.0-4.0); LYMPHOCYTES % (AUTO) 27 % (12-44); MEAN CORPUSCULAR HEMOGLOBIN 30 pg (25-34); MEAN CORPUSCULAR HGB CONC 35 g/dL (32-36); MEAN CORPUSCULAR VOLUME 86 fL (80-99); MEAN PLATELET VOLUME 9.4 fL (9.0-12.2); MONOCYTES # (AUTO) 0.6 10^3/uL (0.0-1.0); MONOCYTES % (AUTO) 8 % (0-12); NEUTROPHILS # (AUTO) 5.1 10^3/uL (1.8-7.8); NEUTROPHILS % (AUTO) 60 % (42-75); PLATELET COUNT 295 10^3/uL (130-400); WHITE BLOOD COUNT 8.4 10^3/uL (4.3-11.0)
[2021-06-02 01:03] LABS: ALBUMIN 3.9 GM/DL (3.2-4.5); PROTHROMBIN TIME PATIENT 13.2 SEC (12.2-14.7)
[2021-06-02 01:04] LABS: CALCIUM 9.3 MG/DL (8.5-10.1)
[2021-06-02 01:06] LABS: TOTAL PROTEIN 6.7 GM/DL (6.4-8.2)
[2021-06-02 01:07] LABS: BILIRUBIN,TOTAL 0.4 MG/DL (0.1-1.0)
[2021-06-02 01:09] LABS: CREATININE SERUM 1.25 MG/DL (0.60-1.30)
[2021-06-02] MEDS ORDERED: PANTOPRAZOLE 40 MG (PROTONIX) VIAL IV ONE (01:15)
[2021-06-02] MEDS ORDERED: ONDA4TAB11 PO (01:28)
[2021-06-02] MEDS ORDERED: PANT40SU PO (01:28)
[2021-06-02 01:53] VITALS: BP 132/90
== END 2021-06-02 01:50 | disposition home or self-care (01) ==
LOC: EDUNIT# 23:54 → ER 23:56
DX: K92.2 Gastrointestinal hemorrhage, unspecified (principal); I10 Essential (primary) hypertension; Z87.820 Personal history of traumatic brain injury; Z86.14 Personal history of Methicillin resistant Staphylococcus aureus infection
CPT/HCPCS: 36415; 80053; 85025; 85610; 85730

== ENCOUNTER 2021-08-24 14:08 | Emergency (ER) | payer MEDICAID ==
[~2021-08-24 14:08] MED LIST changes: +ONDA4TAB11 PO; +PANT40SU PO
== END 2021-08-24 15:04 | disposition left against medical advice (07) ==
LOC: EDUNIT# 14:08 → ER 14:12
DX: S61.412A Laceration without foreign body of left hand, initial encounter (principal); W26.8XXA Contact with other sharp object(s), not elsewhere classified, initial encounter

== ENCOUNTER 2021-11-21 19:37 | Emergency (ER) | payer MEDICAID ==
[~2021-11-21] VITALS: Ht 175 cm; Wt 90.2 kg
[2021-11-21 19:40] VITALS: BP 141/99
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
[2021-11-21] MEDS ORDERED: DOXYCYCLINE 100 MG (VIBRAMYCIN) TABLET PO STA (20:02)
[2021-11-21] MEDS ORDERED: CEPHALEXIN 250 MG (KEFLEX) CAP PO STA (20:06)
[2021-11-21] MEDS ORDERED: SULF-221 PO (20:07)
[2021-11-21] MEDS ORDERED: CEPH500T PO (20:07)
[2021-11-21] MEDS ORDERED: CEPHALEXIN 250 MG (KEFLEX) CAP PO ONE (20:13)
== END 2021-11-21 20:22 | disposition home or self-care (01) ==
LOC: EDUNIT# 19:37 → ER 19:39
DX: L02.511 Cutaneous abscess of right hand (principal); L03.011 Cellulitis of right finger; I10 Essential (primary) hypertension; F17.210 Nicotine dependence, cigarettes, uncomplicated; Z91.128 Patient's intentional underdosing of medication regimen for other reason; Z86.14 Personal history of Methicillin resistant Staphylococcus aureus infection
CPT/HCPCS: 99283

== ENCOUNTER 2022-02-21 12:20 | Emergency (ER) | payer MEDICAID ==
[~2022-02-21] VITALS: Ht 175.2 cm; Wt 90.7 kg
[~2022-02-21 12:20] MED LIST changes: +SULF-221 PO
[2022-02-21 12:22] VITALS: BP 132/86
== END 2022-02-21 12:35 | disposition left against medical advice (07) ==
LOC: EDUNIT# 12:20 → ER 12:22
DX: N20.0 Calculus of kidney (principal); Z28.310 Unvaccinated for COVID-19
CPT/HCPCS: 99283

== ENCOUNTER 2022-06-04 21:37 | Emergency (ER) | payer MEDICAID ==
[~2022-06-04] VITALS: Ht 175 cm; Wt 91.0 kg
[2022-06-04] MEDS ORDERED: NS IV 1000 ML 1,000 ML IV SCH (22:45)
[2022-06-04] MEDS ORDERED: MECLIZINE 25 MG (ANTIVERT) TAB PO ONE (22:45)
[2022-06-04 22:55] LABS: BASOPHILS # (AUTO) 0.1 10^3/uL (0.0-0.1); BASOPHILS % (AUTO) 1 % (0-10); EOSINOPHILS # (AUTO) 0.5 10^3/uL (0.0-0.3); EOSINOPHILS % (AUTO) 5 % (0-10); HEMATOCRIT 42 % (40-54); HEMOGLOBIN 15.2 g/dL (13.3-17.7); LYMPHOCYTES # (AUTO) 3.4 10^3/uL (1.0-4.0); LYMPHOCYTES % (AUTO) 36 % (12-44); MEAN CORPUSCULAR HEMOGLOBIN 31 pg (25-34); MEAN CORPUSCULAR HGB CONC 36 g/dL (32-36); MEAN CORPUSCULAR VOLUME 84 fL (80-99); MEAN PLATELET VOLUME 9.6 fL (9.0-12.2); MONOCYTES # (AUTO) 0.9 10^3/uL (0.0-1.0); MONOCYTES % (AUTO) 9 % (0-12); NEUTROPHILS # (AUTO) 4.7 10^3/uL (1.8-7.8); NEUTROPHILS % (AUTO) 49 % (42-75); PLATELET COUNT 269 10^3/uL (130-400); WHITE BLOOD COUNT 9.5 10^3/uL (4.3-11.0)
[2022-06-04 23:24] LABS: BUN/CREATININE RATIO 15; CALCIUM 9.5 MG/DL (8.5-10.1); CARBON DIOXIDE 24 MMOL/L (21-32); CHLORIDE 104 MMOL/L (98-107); CREATININE SERUM 1.29 MG/DL (0.60-1.30); GFR ESTIMATED 71; GLUCOSE 99 MG/DL (70-105); POTASSIUM 4.3 MMOL/L (3.6-5.0); SODIUM 140 MMOL/L (135-145)
[2022-06-05] MEDS ORDERED: MECL-149 PO (00:18)
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
[2022-06-05 00:21] VITALS: BP 126/88
== END 2022-06-05 00:24 | disposition home or self-care (01) ==
LOC: EDUNIT# 21:37 → ER 21:38
DX: R42 Dizziness and giddiness (principal); Z28.310 Unvaccinated for COVID-19
CPT/HCPCS: 36415; 80048; 84484; 85025; 93005

== ENCOUNTER → 2022-09-09 | Outpatient (CLI) | payer MEDICAID ==
[~2022-09-09] MED LIST changes: +MECL-149 PO
--- NOTE | 2022-09-09 15:17 | Diagnostic Imaging Report ---
PROCEDURE: CT urinary tract, rule out kidney stone. TECHNIQUE: Multiple contiguous axial images were obtained through the abdomen and pelvis without the use of intravenous contrast. Auto Exposure Controls were utilized during the CT exam to meet ALARA standards for radiation dose reduction. INDICATION: Bilateral kidney pain. Correlation is made with prior CT from 10/22/2020. The lung bases are clear. The liver and gallbladder are unremarkable. There is no biliary ductal dilatation. Pancreas and spleen are unremarkable. No adrenal mass is identified. Left kidney is unremarkable. There are multiple nonobstructing calculi within the right kidney. No ureteral calculi or hydronephrosis is identified. Aorta is nonaneurysmal. Small and large bowel loops are normal caliber. There is no ascites. Bladder and prostate are unremarkable. The bony structures are nonacute. IMPRESSION: 1. Right-sided nonobstructing nephrolithiasis. No definite ureteral calculi or hydronephrosis is identified. No acute feature in the abdomen or pelvis is seen. Dictated by: Dictated on workstation # [id number]
== END ==
LOC: RAD 14:09
PROVIDERS: ATTEND Nurse Practitioner Family
DX: N20.0 Calculus of kidney (principal)
CPT/HCPCS: 74176